=== PATIENT | male | born 1960 | race Caucasian/White ===

== ENCOUNTER 2020-06-26 14:14 | Emergency (ER) | payer MEDICAID, OTHER ==
[~2020-06-26] VITALS: Ht 180.3 cm; Wt 102.1 kg
[2020-06-26 14:40] VITALS: BP 156/88
[2020-06-26] MEDS ORDERED: KETOROLAC TROMETH 60MG/2ML VIAL IM ONE (15:30)
== END 2020-06-26 16:09 | disposition home or self-care (01) ==
LOC: ER 14:14
DX: S53.401A Unspecified sprain of right elbow, initial encounter (principal); F17.210 Nicotine dependence, cigarettes, uncomplicated; X50.1XXA Overexertion from prolonged static or awkward postures, initial encounter; Y93.89 Activity, other specified; Y99.8 Other external cause status; Y92.89 Other specified places as the place of occurrence of the external cause
CPT/HCPCS: 73080; 99283; J1885